=== PATIENT | male | born 1975 | race Caucasian/White ===

== ENCOUNTER 2016-09-24 11:00 | Inpatient (IN) | payer BC ==
[2016-09-24 12:45] VITALS: BMI 23.8
--- NOTE | 2016-09-24 15:59 | HP ---
Admission [facility] Chief Complaint: REHAB TX FOR HEROIN AND XANAX DEPENDENCE Allergies/Adverse Reactions: Allergies Allergy/AdvReac Type Severity Reaction Status Date / Time No Known Allergies Allergy Verified 09/24/16 15:54 History of Present Illness: 41 Y/O MALE WITH A HX HEROIN AND XANAX DEPENDENCE SEEKING REHAB TX. PT COMPLETED DETOX TODAY AT [facility] AND REFERRED HERE TO REHAB. Exam Limitations: No Limitations - Ebola screening Have you traveled outside of the country in the last 21 days: No Have you had contact with anyone from an Ebola affected area: No Have you been sick,other than usual withdrawal symptoms: No Do you have a fever: No - Review of Systems Constitutional: Chills, Loss of Appetite, Night Sweats, Changes in sleep, Unintentional Wgt. Loss EENT: reports: Blurred Vision, Tearing, Nose Congestion Respiratory: reports: No Symptoms reported Cardiac: reports: Lightheadedness, Chest Tightness GI: reports: Indigestion (NEXIUM IN THE PAST) : reports: No Symptoms Reported Musculoskeletal: reports: Back Pain, Joint Pain, Muscle Pain Integumentary: reports: No Symptoms Reported Neuro: reports: Numbness, Tingling, Tremors, Unsteady Gait, Dizziness Endocrine: reports: No Symptoms Reported Hematology: reports: No Symptoms Reported Psychiatric: reports: Orientated x3, Anxious Other Systems: Reviewed and Negative Patient History - Patient Medical History Hx Anemia: No Hx Asthma: No Hx Chronic Obstructive Pulmonary Disease (COPD): No Hx Cardiac Disorders: No Hx Hypertension: No Hx Hypercholesterolemia: No HX Cerebrovascular Accident: No Hx Seizures: No Hx Diabetes: No Hx Gastrointestinal Disorders: Yes (GERD-NEXIUM IN THE PAST) Hx Genitourinary Disorders: No Hx Sexually Transmitted Disorders: No Hx Renal Disease (ESRD): No Hx Thyroid Disease: No Hx Human Immunodeficiency Virus (HIV): No (NEGATIVE HX) Hx Hepatitis C: No Hx Depression: No Hx Suicide Attempt: No (DENIES) Hx Bipolar Disorder: No Hx Schizophrenia: No - Patient Surgical History Past Surgical History: No Hx Neurologic Surgery: No Hx Cataract Extraction: No Hx Cardiac Surgery: No Hx Lung Surgery: No Hx Breast Surgery: No Hx Breast Biopsy: No Hx Abdominal Surgery: No Hx Appendectomy: No Hx Cholecystectomy: No Hx Genitourinary Surgery: No Hx Orthopedic Surgery: No Anesthesia Reaction: No - PPD History Previous Implant?: Yes Documented Results: Negative w/proof Implanted On Prior [facility] Admission?: No Date: 09/21/16 (AT [facility] DETOX) Results: NEGATIVE QGOLD PPD to be Administered?: No - Reproductive History Patient is a Female of Child Bearing Age (11 -55 yrs old): No (MALE) - Smoking Cessation Smoking history: Current every day smoker Have you smoked in the past 12 months: Yes Aproximately how many cigarettes per day: 20 Hx Chewing Tobacco Use: No Initiated information on smoking cessation: Yes 'Breaking Loose' booklet given: 09/24/16 - Substance & Tx. History Hx Alcohol Use: Yes (BEER/LIQUOR) Hx Substance Use: Yes (HEROIN/XANAX) - Substances Abused Alcohol Route: Oral Frequency: 3-6 times per week (3-4 X/WEEK) Amount used: 1 PT/6 PK Age of first use: 17 Date of Last Use: 09/16/16 Family Disease History - Family Disease History Family History: Denies Admission Physical Exam S - Vital Signs Vital Signs: Vital Signs - 24 hr 09/24/16 12:42 Temperature 98.8 F Pulse Rate 84 Respiratory 17 Rate Blood Pressure 116/72 - Physical General Appearance: Yes: No Apparent Distress, Anxious HEENTM: Yes: EOMI, Normocephalic, VIDHYA, Pharynx Normal, Nasal Congestion, Rhinorrhea Respiratory: Yes: Chest Non-Tender, Lungs Clear, Normal Breath Sounds, No Respiratory Distress Neck: Yes: Supple, Trachea in good position Breast: Yes: Breast Exam Deferred Cardiology: Yes: Regular Rhythm, Regular Rate, S1, S2 Abdominal: Yes: Normal Bowel Sounds, Non Tender, Soft Genitourinary: Yes: Other (N/A) Back: Yes: Within Normal Limits Musculoskeletal: Yes: full range of Motion, Gait Steady Extremities: Yes: Normal Range of Motion, Non-Tender Neurological: Yes: gore stitcher II-XII NML intact, Fully Oriented, Alert Integumentary: Yes: Dry, Warm Lymphatic: Yes: Within Normal Limits - Diagnostic (1) Uncomplicated opioid dependence Current Visit: Yes Status: Chronic (2) Sedative, hypnotic or anxiolytic dependence with withdrawal, uncomplicated Current Visit: Yes Status: Chronic (3) GERD (gastroesophageal reflux disease) Current Visit: Yes Status: Chronic Qualifiers: Esophagitis presence: without esophagitis Qualified Code(s): K21.9 - Gastro-esophageal reflux disease without esophagitis (4) Alcohol dependence with uncomplicated withdrawal Current Visit: Yes Status: Chronic Cleared for Admission [facility] - Detox or Rehab Claeared for Rehab Admission: Yes [facility] Breath Alcohol Content Breath Alcohol Content: 0 Urine Drug Screen - Results Drug Screen Negative: No Urine Drug Screen Results: BZO-Benzodiazepines, MTD-Methadone
[2016-09-24] MEDS ORDERED: MAG HYDROX/AL HYDROX/SIMETH 30 ML UNIT-DOSE CUP PO PRN (16:28)
[2016-09-24] MEDS ORDERED: NICOTINE POLACRILEX 4 MG GUM BC PRN (16:28)
[2016-09-24] MEDS ORDERED: ACETAMINOPHEN 325 MG TABLET (FP) PO PRN (16:28)
[2016-09-24] MEDS ORDERED: MAGNESIUM CITRATE 300 ML BOTTLE PO PRN (16:28)
[2016-09-24] MEDS ORDERED: MENTHOL/PHENOL 1 EACH UD MM PRN (16:28)
[2016-09-24] MEDS ORDERED: P-EPHED 60MG/TRIPROLIDI 2.5MG TABLET PO PRN (16:28)
[2016-09-24] MEDS ORDERED: guaiFENesin/D-METHORPHAN HB 10 ML UNIT-DOSE CUPS PO PRN (16:28)
[2016-09-24] MEDS ORDERED: LOPERAMIDE HCL 2 MG CAPSULE PO PRN (16:28)
[2016-09-24] MEDS ORDERED: MAGNESIUM HYDROX 2400MG/30ML ORAL SUSPENSION 30 ML CUP PO PRN (16:28)
[2016-09-24] MEDS: hydrOXYzine PAMOATE 50 MG CAPSULE (FP) PO PRN ×2 (18:19→23:34)
[2016-09-24] MEDS: NICOTINE 21 MG/24 HOURS TOPICAL PATCH TD SCH (18:20)
[2016-09-24] MEDS: THIAMINE HCL 100 MG TABLET (FP) PO SCH (21:34)
[2016-09-24 23:05] LABS: URINE APPEARANCE CLEAR; URINE BILIRUBIN NEGATIVE (NEGATIVE); URINE BLOOD NEGATIVE (NEGATIVE); URINE COLOR LTYELLOW; URINE GLUCOSE (UA) NEGATIVE (NEGATIVE); URINE KETONE NEGATIVE (NEGATIVE); URINE LEUK ESTERASE NEGATIVE (NEGATIVE); URINE NITRITE NEGATIVE (NEGATIVE); URINE PROTEIN NEGATIVE (NEGATIVE); URINE UROBILINOGEN NEGATIVE mg/dL (0.2-1.0)
[2016-09-25] MEDS: hydrOXYzine PAMOATE 50 MG CAPSULE (FP) PO PRN ×3 (08:39→18:10)
[2016-09-25] MEDS: PRENATAL VITAMINS W/ FOLIC ACID TABLET (FP) PO SCH (09:42)
[2016-09-25] MEDS: NICOTINE 21 MG/24 HOURS TOPICAL PATCH TD SCH (09:42)
[2016-09-25] MEDS ORDERED: CYCLOBENZAPRINE HCL 10 MG TABLET (FP) PO ONE (10:53)
[2016-09-25] MEDS ORDERED: cloNIDine HCL 0.1 MG TABLET PO ONE (10:54)
--- NOTE | 2016-09-25 10:56 | PN ---
[facility] Progress Note Note: withdrawal symptom will give flexeril 10 mgs po tid and clonidine 0.1 mg po bid for 72 hrs
--- NOTE | 2016-09-25 11:29 | HP ---
Psychiatrist Admission - Data Date of interview: 09/25/16 Admission source: [facility] Identifying data: This is the first 5N inpatient rehabilitation admission for this 41 year old male residing with his family in the [place], he currently unemployed. Medical History: GERD, smokes cigarettes 1 PPD. Psychiatric History: Patient reports first psychiatric contact in 2011 to address anxiety and panic attacks, started with Zoloft, was on medication 2 years did not see any improvement and he started abusing Xanax which he finds was more effective with his panic attackacks and anxiety. Short treatment while in detox with Seroquel(stuffy nose), Remeron, Trazodone "was not effective". Currently c/o anxiety, poor sleep, body aches. Physical/Sexual Abuse/Trauma History: Denies history of sexual, physical and verbal abuse. Additional Comment: Patient is [place] descent, lost his job due to his addiction, with one child. Vital Signs: Vital Signs - 24 hr 09/24/16 09/24/16 09/25/16 12:42 17:15 00:30 Temperature 98.8 F 98.1 F Pulse Rate 84 84 Respiratory 17 16 16 Rate Blood Pressure 116/72 122/69 09/25/16 09/25/16 03:30 06:48 Temperature 97.3 F L Pulse Rate 80 Respiratory 16 18 Rate Blood Pressure 121/68 Allergies/Adverse Reactions: Allergies Allergy/AdvReac Type Severity Reaction Status Date / Time No Known Allergies Allergy Verified 09/24/16 15:54 Date of last physical exam: 09/24/16 Concur with the findings of this exam: Yes - Substance Abuse/Tx History Hx Alcohol Use: Yes ("here and there", [facility]) Hx Substance Use: Yes Substance Use Type: Heroin (10-15 bags a day, has been using for the last 2 years), Tranquilizers (XAnax 2 mg up to 4-5 a day) Hx Substance Use Treatment: Yes ([facility] detox.) - Admission Criteria Previous failed treatment: Yes Poor recovery environment: Yes Comorbidities: Yes Lacks judgement: Yes Mental Status Exam - Mental Status Exam Alert and Oriented to: Time, Place, Person Cognitive Function: Good Patient Appearance: Well Groomed Mood: Sad, Anxious Affect: Appropriate, Mood Congruent Patient Behavior: Appropriate, Cooperative Speech Pattern: Clear, Appropriate Voice Loudness: Normal Thought Process: Intact, Goal Oriented Thought Disorder: Not Present Hallucinations: Denies Suicidal Ideation: Denies Homicidal Ideation: Denies Insight/Judgement: Fair Sleep: Poorly, Difficulty falling asleep Appetite: Fair Muscle strength/Tone: Normal Gait/Station: Normal Psychiatric Findings - Problem List ([place] 1, 2,3) (1) Opioid dependence Current Visit: Yes Status: Acute (2) Sedative hypnotic or anxiolytic dependence Current Visit: Yes Status: Acute (3) Nicotine dependence Current Visit: Yes Status: Acute (4) Alcohol dependence Current Visit: Yes Status: Acute (5) GARRETT (generalized anxiety disorder) Current Visit: Yes Status: Acute (6) Opioid-induced sleep disorder Current Visit: Yes Status: Acute - Initial Treatment Plan Initial Treatment Plan: Indications/properties of Gabapentin and Sinequan discussed with the patient, he agreed with the plan, will start medications and monitor progress/response.
[2016-09-25] MEDS: GABAPENTIN 100 MG CAPSULE (FP) PO SCH ×2 (14:03→21:11)
[2016-09-25 16:23] LABS: MCH 29.6 pg (25.7-33.7); MCHC 33.3 g/dl (32.0-35.9); MEAN PLT VOLUME 8.7 fl (7.5-11.1); PLATELET COUNT 222 K/MM3 (134-434); RDW 13.2 % (11.9-15.9); WHITE BLOOD COUNT 6.2 K/mm3 (4.0-10.0)
[2016-09-25 16:30] LABS: ALBUMIN 4.1 g/dl (3.4-5.0); ANION GAP 6 (8-16); CALCIUM 9.4 mg/dL (8.5-10.1); CO2 30 mmol/L (21-32); GLUCOSE,RANDOM 125 mg/dL (74-106)
[2016-09-25 16:34] LABS: ALK PHOS 78 U/L (45-117); BILIRUBIN,TOTAL 1.1 mg/dL (0.2-1.0); CREATININE 0.9 mg/dL (0.7-1.3); SGOT/AST 16 U/L (15-37); SGPT/ALT 31 U/L (12-78); TOT PROT 6.9 g/dl (6.4-8.2)
--- NOTE | 2016-09-25 17:06 | EKG ---
Test Reason : Blood Pressure : / mmHG Vent. Rate : 086 BPM Atrial Rate : 086 BPM P-R Int : 144 ms QRS Dur : 080 ms QT Int : 378 ms P-R-T Axes : 087 079 069 degrees QTc Int : 452 ms POOR DATA QUALITY, INTERPRETATION MAY BE ADVERSELY AFFECTED NORMAL SINUS RHYTHM RIGHT AXIS DEVIATION NO PREVIOUS ECGS AVAILABLE [facility]ICALLY Confirmed by TAMI TRAN MD ([id number]) on 09/25/2016 5:06:25 PM Referred By: Confirmed By:TAMI TRAN MD
[2016-09-25] MEDS: cloNIDine HCL 0.1 MG TABLET PO SCH (21:10)
[2016-09-25] MEDS: THIAMINE HCL 100 MG TABLET (FP) PO SCH (21:10)
[2016-09-25] MEDS: DOXEPIN HCL 50 MG CAPSULE PO SCH (21:12)
[2016-09-26] MEDS: GABAPENTIN 100 MG CAPSULE (FP) PO SCH ×3 (06:19→22:12)
[2016-09-26] MEDS: hydrOXYzine PAMOATE 50 MG CAPSULE (FP) PO PRN ×3 (06:19→18:46)
[2016-09-26] MEDS: cloNIDine HCL 0.1 MG TABLET PO SCH ×2 (09:52→22:12)
[2016-09-26] MEDS: PRENATAL VITAMINS W/ FOLIC ACID TABLET (FP) PO SCH (09:52)
[2016-09-26] MEDS: NICOTINE 21 MG/24 HOURS TOPICAL PATCH TD SCH (09:53)
[2016-09-26] MEDS: CYCLOBENZAPRINE HCL 10 MG TABLET (FP) PO PRN ×2 (09:54→22:13)
[2016-09-26] MEDS: THIAMINE HCL 100 MG TABLET (FP) PO SCH (22:12)
[2016-09-26] MEDS: DOXEPIN HCL 50 MG CAPSULE PO SCH (22:13)
[2016-09-27] MEDS: GABAPENTIN 100 MG CAPSULE (FP) PO SCH ×2 (06:31→08:15)
[2016-09-27] MEDS: hydrOXYzine PAMOATE 50 MG CAPSULE (FP) PO PRN ×3 (08:14→21:35)
[2016-09-27] MEDS: PRENATAL VITAMINS W/ FOLIC ACID TABLET (FP) PO SCH (09:51)
[2016-09-27] MEDS: cloNIDine HCL 0.1 MG TABLET PO SCH ×2 (09:52→21:33)
[2016-09-27] MEDS: NICOTINE 21 MG/24 HOURS TOPICAL PATCH TD SCH (09:52)
[2016-09-27] MEDS: CYCLOBENZAPRINE HCL 10 MG TABLET (FP) PO PRN (09:53)
--- NOTE | 2016-09-27 11:53 | PN ---
Psychiatric Progress Note Vital Signs: Vital Signs Period Temp Pulse Resp BP Sys/William Pulse Ox Last 24 Hr 98.0 F 92-105 18-18 110-130/63-68 Date of Session: 09/27/16 Chief Complaint:: progress update HPI: Patient is addressing alcohol, opioid, sedative dependence comorbid GARRETT, opioid induced sleep disorder. ROS: WNL Current Medications: Active Medications Generic Name Dose Route Start Last Admin Trade Name Freq PRN Reason Stop Dose Admin Acetaminophen 650 mg 09/24/16 16:28 Tylenol - PO Q4H PRN PAIN Al Hydroxide/Mg Hydroxide 30 ml 09/24/16 16:28 Mylanta Oral Suspension - PO Q6H PRN DYSPEPSIA Clonidine 0.1 mg 09/25/16 22:00 09/27/16 09:52 Catapres - PO 09/28/16 23:59 0.1 mg BID JUAN Administration Cyclobenzaprine HCl 10 mg 09/25/16 10:53 09/27/16 09:53 Flexeril - PO 09/28/16 23:59 10 mg TID PRN Administration MUSCLE SPASMS Diphenhydramine HCl 50 mg 09/24/16 16:28 Benadryl - PO HSMR1 PRN INSOMNIA Doxepin HCl 75 mg 09/27/16 11:47 Sinequan - PO HS JUAN Eucalyptus/Menthol/Phenol/Sorbitol 1 each 09/24/16 16:28 Cepastat Lozenge - MM Q4H PRN SORE THROAT Gabapentin 300 mg 09/27/16 11:43 Neurontin - PO TID JUAN Guaifenesin 10 ml 09/24/16 16:28 Robitussin Dm - PO Q6H PRN COUGH Hydroxyzine Pamoate 50 mg 09/24/16 16:28 09/27/16 08:14 Vistaril - PO 50 mg Q4H PRN Administration AGITATION Ibuprofen 400 mg 09/24/16 16:28 Motrin - PO Q6H PRN SEVERE PAIN Loperamide HCl 4 mg 09/24/16 16:28 Imodium - PO Q6H PRN DIARRHEA Magnesium Citrate 300 ml 09/24/16 16:28 Citroma - PO Q48H PRN CONSTIPATION Magnesium Hydroxide 30 ml 09/24/16 16:28 Milk Of Magnesia - PO DAILY PRN CONSTIPATION Nicotine 21 mg 09/24/16 17:00 09/27/16 09:52 Nicoderm Patch - TD Not Given DAILY JUAN Nicotine Polacrilex 4 mg 09/24/16 16:28 Nicorette Gum - BC Q2H PRN NICOTINE REPLACEMENT RX Multivit/Folic Acid/Iron 1 tab 09/25/16 10:00 09/27/16 09:51 Vitamins ([facility]) - PO 1 tab DAILY JUAN Administration Pseudoephedrine/Triprolidine 1 combo 09/24/16 16:28 Actifed - PO TID PRN NASAL CONGESTION Thiamine HCl 100 mg 09/24/16 22:00 09/26/16 22:12 Vitamin B1 - PO 100 mg HS JUAN Administration Medication(s) Change(s): increase Gabapentin 300 mg po tid and Sinequan 75 mg po hs. Current Side Effect: No Lab tests ordered: No Lab tests reviewed: Yes Provider note:: Patient reports difficult time to adjust to the unit due to increased anxiety, being restless, unable to lseep. Thinks he still withdrawing from "benzo's". Reweived his current medications, discussed treatment plan, psychoeducation and supports provided, will continue to monitor progress. Total face to face time:: 35 Mental Status Exam - Mental Status Exam Alert and Oriented to: Time, Place, Person Cognitive Function: Good Patient Appearance: Well Groomed Mood: Sad, Anxious, Irritable Affect: Mood Congruent Patient Behavior: Restless, Appropriate, Cooperative Speech Pattern: Clear, Appropriate Voice Loudness: Normal Thought Process: Goal Oriented Thought Disorder: Not Present Hallucinations: Denies Suicidal Ideation: Denies Homicidal Ideation: Denies Insight/Judgement: Fair Sleep: Poorly, Difficulty falling asleep Appetite: Fair Muscle strength/Tone: Normal Gait/Station: Normal Psychiatric Treatment Plan - Problem List (1) Alcohol dependence Current Visit: Yes (2) GARRETT (generalized anxiety disorder) Current Visit: Yes (3) Nicotine dependence Current Visit: Yes (4) Opioid dependence Current Visit: Yes (5) Opioid-induced sleep disorder Current Visit: Yes (6) Sedative hypnotic or anxiolytic dependence Current Visit: Yes (7) GERD (gastroesophageal reflux disease) Current Visit: Yes Qualifiers: Esophagitis presence: without esophagitis Qualified Code(s): K21.9 - Gastro-esophageal reflux disease without esophagitis
[2016-09-27] MEDS: GABAPENTIN 300 MG CAPSULE (FP) PO SCH ×2 (14:15→21:32)
[2016-09-27] MEDS: THIAMINE HCL 100 MG TABLET (FP) PO SCH (21:33)
[2016-09-27] MEDS: DOXEPIN HCL 25 MG CAPSULE PO SCH (21:33)
[2016-09-28] MEDS: GABAPENTIN 300 MG CAPSULE (FP) PO SCH ×3 (06:33→21:11)
[2016-09-28] MEDS: hydrOXYzine PAMOATE 50 MG CAPSULE (FP) PO PRN ×3 (06:35→21:12)
[2016-09-28] MEDS: CYCLOBENZAPRINE HCL 10 MG TABLET (FP) PO PRN ×2 (06:35→21:12)
[2016-09-28] MEDS: PRENATAL VITAMINS W/ FOLIC ACID TABLET (FP) PO SCH (10:06)
[2016-09-28] MEDS: cloNIDine HCL 0.1 MG TABLET PO SCH ×2 (10:06→21:11)
[2016-09-28] MEDS: NICOTINE 21 MG/24 HOURS TOPICAL PATCH TD SCH (10:06)
[2016-09-28] MEDS: DOXEPIN HCL 25 MG CAPSULE PO SCH (21:10)
[2016-09-28] MEDS: THIAMINE HCL 100 MG TABLET (FP) PO SCH (21:11)
[2016-09-29] MEDS: IBUPROFEN 400 MG TABLET (FP) PO PRN ×2 (07:20→21:24)
[2016-09-29] MEDS: GABAPENTIN 300 MG CAPSULE (FP) PO SCH ×3 (07:38→21:24)
[2016-09-29] MEDS: PRENATAL VITAMINS W/ FOLIC ACID TABLET (FP) PO SCH (10:06)
[2016-09-29] MEDS: NICOTINE 21 MG/24 HOURS TOPICAL PATCH TD SCH (10:06)
[2016-09-29] MEDS: hydrOXYzine PAMOATE 50 MG CAPSULE (FP) PO PRN (18:27)
[2016-09-29] MEDS: THIAMINE HCL 100 MG TABLET (FP) PO SCH (21:24)
[2016-09-29] MEDS: DOXEPIN HCL 25 MG CAPSULE PO SCH (21:24)
[2016-09-29] MEDS: diphenhydrAMINE HCL 50 MG CAPSULE PO PRN (23:16)
[2016-09-30] MEDS: GABAPENTIN 300 MG CAPSULE (FP) PO SCH ×3 (06:21→21:25)
[2016-09-30] MEDS: PRENATAL VITAMINS W/ FOLIC ACID TABLET (FP) PO SCH (10:00)
[2016-09-30] MEDS: NICOTINE 21 MG/24 HOURS TOPICAL PATCH TD SCH (10:03)
[2016-09-30] MEDS: hydrOXYzine PAMOATE 50 MG CAPSULE (FP) PO PRN ×2 (10:03→14:21)
[2016-09-30] MEDS: THIAMINE HCL 100 MG TABLET (FP) PO SCH (21:25)
[2016-09-30] MEDS: DOXEPIN HCL 25 MG CAPSULE PO SCH (21:25)
[2016-09-30] MEDS: diphenhydrAMINE HCL 50 MG CAPSULE PO PRN (21:26)
[2016-10-01] MEDS: GABAPENTIN 300 MG CAPSULE (FP) PO SCH (06:20)
[2016-10-01] MEDS: hydrOXYzine PAMOATE 50 MG CAPSULE (FP) PO PRN (06:21)
[2016-10-01 06:38] VITALS: BP 111/60; PULSE 87; TEMP 98.4
--- NOTE | 2016-10-01 09:19 | PN ---
Psychiatric Progress Note Vital Signs: Vital Signs Period Temp Pulse Resp BP Sys/William Pulse Ox Last 24 Hr 98.4 F 87 15-18 111/60 Date of Session: 10/01/16 Chief Complaint:: discharge visit. HPI: Patient is addressing alcohol, opioid, sedative dependence comorbid GARRETT, opioid induced sleep disorder. ROS: WNL Current Medications: Active Medications Generic Name Dose Route Start Last Admin Trade Name Freq PRN Reason Stop Dose Admin Acetaminophen 650 mg 09/24/16 16:28 Tylenol - PO Q4H PRN PAIN Al Hydroxide/Mg Hydroxide 30 ml 09/24/16 16:28 Mylanta Oral Suspension - PO Q6H PRN DYSPEPSIA Diphenhydramine HCl 50 mg 09/24/16 16:28 09/30/16 21:26 Benadryl - PO 50 mg HSMR1 PRN Administration INSOMNIA Doxepin HCl 75 mg 09/27/16 22:00 09/30/16 21:25 Sinequan - PO 75 mg HS JUAN Administration Eucalyptus/Menthol/Phenol/Sorbitol 1 each 09/24/16 16:28 Cepastat Lozenge - MM Q4H PRN SORE THROAT Gabapentin 300 mg 09/27/16 14:00 10/01/16 06:20 Neurontin - PO 300 mg TID JUAN Administration Guaifenesin 10 ml 09/24/16 16:28 Robitussin Dm - PO Q6H PRN COUGH Hydroxyzine Pamoate 50 mg 09/24/16 16:28 10/01/16 06:21 Vistaril - PO 50 mg Q4H PRN Administration AGITATION Ibuprofen 400 mg 09/24/16 16:28 09/29/16 21:24 Motrin - PO 400 mg Q6H PRN Administration SEVERE PAIN Loperamide HCl 4 mg 09/24/16 16:28 Imodium - PO Q6H PRN DIARRHEA Magnesium Citrate 300 ml 09/24/16 16:28 Citroma - PO Q48H PRN CONSTIPATION Magnesium Hydroxide 30 ml 09/24/16 16:28 Milk Of Magnesia - PO DAILY PRN CONSTIPATION Nicotine 21 mg 09/24/16 17:00 09/30/16 10:03 Nicoderm Patch - TD Not Given DAILY JUAN Nicotine Polacrilex 4 mg 09/24/16 16:28 Nicorette Gum - BC Q2H PRN NICOTINE REPLACEMENT RX Multivit/Folic Acid/Iron 1 tab 09/25/16 10:00 09/30/16 10:00 Vitamins ([facility]) - PO 1 tab DAILY JUAN Administration Pseudoephedrine/Triprolidine 1 combo 09/24/16 16:28 Actifed - PO TID PRN NASAL CONGESTION Thiamine HCl 100 mg 09/24/16 22:00 09/30/16 21:25 Vitamin B1 - PO 100 mg HS JUAN Administration Current Side Effect: No Lab tests ordered: No Lab tests reviewed: Yes Provider note:: Patient requested to be discharge today, he completed 7 days. Patient gained insights into importance continue maintain abstinence and utilize all supports availble to prevent relapses. Patient reports that Gabapentin and Sinequan have been effective in terms of mood stabilization, decreasing anxiety and sleep improvement, no side-effects reported. Scripts provided for 30 days, patient is stable for discharge. Total face to face time:: 30 Mental Status Exam - Mental Status Exam Alert and Oriented to: Time, Place, Person Cognitive Function: Good Patient Appearance: Well Groomed Mood: Hopeful Affect: Appropriate, Mood Congruent Patient Behavior: Appropriate, Cooperative Speech Pattern: Clear, Appropriate Voice Loudness: Normal Thought Process: Intact, Goal Oriented Thought Disorder: Not Present Hallucinations: Denies Suicidal Ideation: Denies Homicidal Ideation: Denies Insight/Judgement: Fair Sleep: Well Appetite: Good Muscle strength/Tone: Normal Gait/Station: Normal Psychiatric Treatment Plan - Problem List (1) Alcohol dependence Current Visit: Yes (2) GARRETT (generalized anxiety disorder) Current Visit: Yes (3) Nicotine dependence Current Visit: Yes (4) Opioid dependence Current Visit: Yes (5) Opioid-induced sleep disorder Current Visit: Yes (6) Sedative hypnotic or anxiolytic dependence Current Visit: Yes (7) GERD (gastroesophageal reflux disease) Current Visit: Yes Qualifiers: Esophagitis presence: without esophagitis Qualified Code(s): K21.9 - Gastro-esophageal reflux disease without esophagitis
== END 2016-10-01 09:45 | disposition home or self-care (01) | DRG 772 ==
LOC: YASAS 11:00 → Y5N 16:28
PROVIDERS: ADMIT Psychiatry & Neurology Psychiatry; ATTEND Psychiatry & Neurology Psychiatry
PROC: HZ42ZZZ Group Counseling for Substance Abuse Treatment, Cognitive-Behavioral (ICD-10-PCS; principal; 2016-10-01)
DX: F11.23 Opioid dependence with withdrawal (principal); F13.230 Sedative, hypnotic or anxiolytic dependence with withdrawal, uncomplicated; F10.230 Alcohol dependence with withdrawal, uncomplicated; F17.210 Nicotine dependence, cigarettes, uncomplicated; F19.282 Other psychoactive substance dependence with psychoactive substance-induced sleep disorder; F41.1 Generalized anxiety disorder
CPT/HCPCS: 36415; 80053; 81003; 85027; 86593; 93005; 93010